=== PATIENT | female | born 1975 | race Caucasian/White ===

== ENCOUNTER 2016-08-07 09:20 | Emergency (ER) | payer MEDICAID ==
[2016-08-07] MEDS ORDERED: METHYLPRED SOD SUCC 125 MG/2 ML VIAL ONE (11:35)
[2016-08-07] MEDS ORDERED: DUONEB INH ONE ×2 (12:09→13:07)
== END 2016-08-07 14:48 | disposition home or self-care (01) ==
LOC: ER 09:20
DX: J44.0 Chronic obstructive pulmonary disease with (acute) lower respiratory infection (principal); J20.9 Acute bronchitis, unspecified; J44.1 Chronic obstructive pulmonary disease with (acute) exacerbation; J45.909 Unspecified asthma, uncomplicated; F17.200 Nicotine dependence, unspecified, uncomplicated; I10 Essential (primary) hypertension; E78.00 Pure hypercholesterolemia, unspecified
CPT/HCPCS: 36415; 71020; 80053; 85025; 87880; 94640; 96374